=== PATIENT | female | born 1990 | race Caucasian/White ===

== ENCOUNTER → 2017-06-07 | Outpatient (CLI) | payer BC ==
[2017-06-07 09:31] LABS: CH 26.5; CHCM 31.9; HCT 37.4 % (34.0-46.0); HDW 2.35; HGB 12.3 gm/dL (11.4-16.0); MCH 27.4 pg (25.0-35.0); MCHC 32.8 g/dL (31.0-37.0); MCV 83.6 fL (80.0-100.0); Mean Platelet Volume 7.3; RBC 4.47 m/uL (3.80-5.40); RDW 14.3 % (11.5-15.5); WBC 8.1 k/uL (3.8-10.6)
[2017-06-07 09:33] LABS: Glucose 76 mg/dL (74-99); Non-African American GFR(MDRD) >60 (>60 ml/min/1.73 sqM)
[2017-06-07 15:46] LABS: Treponemal Ab Non-Reactive (Non-Reactive)
[2017-06-09 06:54] LABS: Toxoplasma Antibody (IgG) <3.0 IU/mL (<7.2)
== END | disposition home or self-care (01) ==
LOC: LABWHC1 08:46
PROVIDERS: ATTEND Obstetrics & Gynecology
DX: Z34.81 Encounter for supervision of other normal pregnancy, first trimester (principal)
CPT/HCPCS: 36415; 82565; 82947; 85027; 86762; 86777; 86778; 86780; 86850; 86900; 86901; 87340; 87390

== ENCOUNTER 2017-11-30 09:32 | Outpatient (CLI) | payer BC ==
[2017-11-30 09:46] VITALS: RESP 16; TEMP 98.3
[2017-11-30 10:13] LABS: Appearance,Urine Clear (Clear); Bacteria,Urine Moderate /hpf; Bilirubin,Urine Negative (Negative); Blood,Urine Negative (Negative); Color,Urine Light Yellow; Glucose,Urine (UA) Negative (Negative); Ketones,Urine Negative (Negative); Leukocyte Esterase,Urine Moderate (Negative); Nitrite,Urine Negative (Negative); PH, Urine 6.5 (5.0-8.0); Protein,Urine Negative (Negative); Specific Gravity,Urine 1.002 (1.001-1.035); Squamous Epithelial Cell,Urine 1 /hpf (0-4); Urobilinogen,Urine <2.0 mg/dL (<2.0); WBC,Urine 3 /hpf (0-5)
[2017-11-30 10:55] LABS: Basophils % (A) 0 %; Eosinophils # (A) 0.1 k/uL (0-0.7); Eosinophils % (A) 1 %; HCT 35.2 % (34.0-46.0); HGB 11.6 gm/dL (11.4-16.0); Lymphocytes # (A) 1.2 k/uL (1.0-4.8); Lymphocytes % (A) 12 %; MCH 27.5 pg (25.0-35.0); MCV 83.4 fL (80.0-100.0); Mean Platelet Volume 7.1; Monocytes # (A) 0.8 k/uL (0-1.0); Monocytes % (A) 8 %; Neutrophils # (A) 7.9 k/uL (1.3-7.7); Neutrophils % (A) 78 %; Platelet Count 210 k/uL (150-450); RBC 4.22 m/uL (3.80-5.40); WBC 10.1 k/uL (3.8-10.6)
[2017-11-30 11:09] LABS: ALT 31 U/L (9-52); AST 19 U/L (14-36); Blood Urea Nitrogen 7 mg/dL (7-17); LDH 442 U/L (313-618); Uric Acid 3.1 mg/dL (3.7-7.4)
[2017-11-30 11:32] VITALS: BP 121/74; PULSE 96
--- NOTE | 2017-11-30 12:27 | P.MSEPDOC ---
Presenting Problems - Arrival Data Date of Arrival on Unit: 11/30/17 Time of Arrival on Unit: 09:30 Mode of Transport: Ambulatory - Complaint OB-Reason for Admission/Chief Complaint: Elevated Blood Pressure Comment: sent from office Medical History - Information : 1 Para: 0 Term: 0 : 0 Abortions: Spontaneous or Elective: 0 Number of Living Children: 0 - Gestational Age Gestational Age by ADDIS (wks/days): 33 Weeks and 6 Days Review of Systems - Review of Systems Constitutional: No problems Breast: No problems ENT: No problems Cardiovascular: No problems Respiratory: No problems Gastrointestinal: No problems Genitourinary: No problems Musculoskeletal: No problems Neurological: No problems Skin: No problems Vital Signs - Temperature Temperature: 98.3 F Temperature Source: Temporal Artery Scan - Pulse Right Pulse Rate: 96 Pulse Assessment Method: Pulse Oximetry - Respirations Respiratory Rate: 16 - Blood Pressure Right Arm Blood Pressure: 121/74 Blood Pressure Mean: 89 Blood Pressure Source: Automatic Cuff Medical Screen Scoring (Pre) - Cervical Exam Dilation: Exam Deferred Effacement: Exam Deferred - Uterine Contractions Frequency: > 5 minutes apart = 1 Duration: > 40 seconds = 2 Intensity: N/A - Maternal Vital Signs Maternal Temperature: N/A Maternal Blood Pressure: N/A Signs of Preeclampsia: N/A Maternal Respirations: N/A - Maternal Trauma Maternal Trauma: N/A - Assessment Baseline FHR: 135 Heart Rate - NICHD Category: Category I (Normal) = 0 NST: Reactive Position: N/A - Total Score Total Score (Pre): 3 - Level of Risk Level of Risk: Low (0-5) Physician Notification (Pre) - Physician Notified Physician Notified Date: 11/30/17 Physician Notified Time: 11:25 Physician/Practitioner Notifed:: Dr Saeed - Notification Comment Comment: reported on labs, vitals, fhts, cntrx pattern. orders to d/c home at this time, return with worsening sx. keep scheduled appt in office on wednesday Disposition - Disposition OB Disposition: Discharge to home Discharge Date: 11/30/17 Discharge Time: 11:31 I agree with the RN Medical Screening Exam: Yes Risk & Benefit of care provided described in d/c instruction: Yes Diagnosis: GESTATIONAL HTN W/O SIGNIFICANT PROTEINURIA, THIRD TRIMESTER
== END 2017-11-30 11:30 | disposition home or self-care (01) ==
LOC: FBPOP 09:32
PROVIDERS: ATTEND Obstetrics & Gynecology
DX: O13.3 Gestational [pregnancy-induced] hypertension without significant proteinuria, third trimester (principal); Z3A.33 33 weeks gestation of pregnancy
CPT/HCPCS: 59025; 81001; 82565; 83615; 84156; 84450; 84460; 84520; 84550; 85025

== ENCOUNTER 2018-01-03 11:47 | Inpatient (IN) | payer BC ==
[2018-01-03] MEDS ORDERED: LIDOCAINE 1% (PF) 10 MG/ML (30 ML SDV) SQ PRN (12:19)
[2018-01-03] MEDS ORDERED: TERBUTALINE 1 MG/ML VIAL SQ PRN (12:19)
[2018-01-03] MEDS ORDERED: OXYTOCIN 10 UNIT/ML 1 ML VIAL IM PRN (12:19)
[2018-01-03] MEDS ORDERED: CARBOPROST TROMETHAMINE 250 MCG/ML 1 ML AMP IM PRN (12:19)
[2018-01-03] MEDS ORDERED: METHYLERGONOVINE 0.2 MG/ML 1 ML AMP IM PRN (12:19)
[2018-01-03] MEDS ORDERED: OXYTOCIN 20 UNITS/1000 ML NS 1,000 ML IV SCH (12:30)
[2018-01-03] MEDS: LACTATED RINGERS 1,000 ML IV SCH (12:40)
[2018-01-03 12:56] VITALS: BMI 30.9
[2018-01-03 12:56] LABS: Basophils % (A) 0 %; Eosinophils # (A) 0.1 k/uL (0-0.7); Eosinophils % (A) 1 %; HCT 35.5 % (34.0-46.0); HGB 11.7 gm/dL (11.4-16.0); Lymphocytes # (A) 1.2 k/uL (1.0-4.8); Lymphocytes % (A) 13 %; MCV 84.9 fL (80.0-100.0); Mean Platelet Volume 7.4; Monocytes # (A) 0.7 k/uL (0-1.0); Monocytes % (A) 8 %; Neutrophils # (A) 7.2 k/uL (1.3-7.7); Neutrophils % (A) 77 %; Platelet Count 203 k/uL (150-450); RBC 4.18 m/uL (3.80-5.40); WBC 9.4 k/uL (3.8-10.6)
[2018-01-03 13:01] LABS: Albumin 3.7 g/dL (3.5-5.0); Bilirubin, Delta 0.2 mg/dL (0.0-0.2); Bilirubin,Unconjugated 0.4 mg/dL (0.0-1.1); Partial Thromboplastin Time 22.6 sec (22.0-30.0); Prothrombin Time 9.5 sec (9.0-12.0); Total Bilirubin 0.6 mg/dL (0.2-1.3); Total Protein 6.4 g/dL (6.3-8.2)
[2018-01-03 14:01] LABS: Appearance,Urine Cloudy (Clear); Bacteria,Urine Few /hpf; Bilirubin,Urine Negative (Negative); Blood,Urine Negative (Negative); Color,Urine Light Yellow; Glucose,Urine (UA) Negative (Negative); Ketones,Urine Negative (Negative); Leukocyte Esterase,Urine Large (Negative); Mucus,Urine Rare /hpf; Nitrite,Urine Negative (Negative); Protein,Urine Negative (Negative); Specific Gravity,Urine 1.004 (1.001-1.035); Squamous Epithelial Cell,Urine 4 /hpf (0-4); Urobilinogen,Urine <2.0 mg/dL (<2.0); WBC,Urine 15 /hpf (0-5)
--- NOTE | 2018-01-03 18:22 | P.HPOB ---
History of Present Illness H&P Date: 01/03/18 Chief Complaint: Gestational hypertension This patient is a pleasant 27-year-old 2 para 0 female estimated date of confinement 01/12/2018 estimated gestational age 38-5/7 weeks' who presents to labor and delivery from my office for delivery secondary to gestational hypertension. History is such that patient developed some elevated diastolic blood pressures at 34 weeks. At that time she was watched closely with antepartum testing and twice weekly blood pressures. She been doing well until presentation today in the office and was noted to have a diastolic blood pressure 90. Repeat blood pressure here at the hospital similarly shows elevated diastolic blood pressure. Patient general is feeling well. Preeclampsia labs are negative. is otherwise been uncomplicated. I recommended to proceed with delivery at this time per current recommendations for gestational hypertension. Review of Systems Gastrointestinal: Reports heartburn Genitourinary: Reports Menstruation: Reports amenorrhea Past Medical History Past Medical History: No Reported History History of Any Multi-Drug Resistant Organisms: None Reported Additional Past Surgical History / Comment(s): deviated nasal septum surgery 2007 Past Anesthesia/Blood Transfusion Reactions: No Reported Reaction Past Psychological History: No Psychological Hx Reported Smoking Status: Never smoker Past Alcohol Use History: None Reported Past Drug Use History: None Reported - Past Family History Father Family Medical History: Hyperlipidemia, Hypertension Medications and Allergies Home Medications Medication Instructions Recorded Confirmed Type Ferrous Sulfate [Slow Fe] 142 mg PO DAILY 11/30/17 01/03/18 History Pnv,Calcium 72/Iron/Folic Acid 1 tab PO DAILY 11/30/17 01/03/18 History [ Plus Tablet] Allergies Allergy/AdvReac Type Severity Reaction Status Date / Time No Known Allergies Allergy Verified 11/30/17 09:35 Exam - Vital Signs Vital signs: Vital Signs Temp Pulse Resp BP Pulse Ox 01/03/18 11:55 97.7 F 98 17 132/92 98 Intake and Output 01/03/18 01/03/18 01/03/18 06:59 14:59 22:59 Other: # Voids 1 Weight 92.079 kg - OBG Physical Exam Abdomen: bowel sounds normal, no diffuse tenderness, no bruit present, no guarding noted, no hepatomegaly, no splenomegaly, no mass Vulva: both: normal Cervix: no lesion (Cervix is 2 cm dilated and 60% effaced.), no discharge Uterus: enlarged (Fundal height is 39 cm.) Results blood work shows she is a nonreactive, hepatitis B negative, HIV nonreactive. patient received RhoGAM on October 12. Group B strep was negative. Ultrasounds have been normal. Estimated weight is approximately 7-3/4 pounds. Result Diagrams: 01/03/18 12:20 Abnormal Lab Results - Last 24 Hours (Table) 01/03/18 01/03/18 Range/Units 12:00 12:20 Uric Acid 3.0 L (3.7-7.4) mg/dL Lactate Dehydrogenase 675 H (313-618) U/L Urine Appearance Cloudy H (Clear) Ur Leukocyte Esterase Large H (Negative) Urine WBC 15 H (0-5) /hpf Urine Bacteria Few H (None) /hpf Urine Mucus Rare H (None) /hpf Assessment and Plan Assessment: This is a pleasant 27-year-old 2 para 0 female 38-5/7 weeks' gestation with mild gestational hypertension. Per current recommendations I recommended she proceed with induction at this time and she agrees. Plan is induction of labor with Pitocin and anticipate vaginal delivery. At this time there is no evidence of preeclampsia. (1) Third trimester Current Visit: Yes Status: Acute Code(s): Z34.93 - ENCNTR FOR SUPRVSN OF NORMAL PREG, UNSP, THIRD TRIMESTER SNOMED Code(s): 28498117 (2) Gestational hypertension Current Visit: Yes Status: Acute Code(s): O13.9 - GESTATIONAL HTN W/O SIGNIFICANT PROTEINURIA, UNSP TRIMESTER SNOMED Code(s): 13478650
[2018-01-03 19:23] LABS: Hemoglobin A1C 5.4 % (4.0-6.0)
[2018-01-03] MEDS ORDERED: BUPIVACAINE (PF) 0.25% 30 ML VIAL ONE (19:55)
[2018-01-03] MEDS ORDERED: fentaNYL (PF) 50 MCG/ML 5 ML AMP ONE (19:55)
[2018-01-03] MEDS ORDERED: SODIUM CHLORIDE 0.9% 100 ML BAG ONE (19:55)
[2018-01-04] MEDS ORDERED: AMPICILLIN 2,000 MG in SODIUM CHLORIDE 0.9% 100 ML IVPB STA (01:44)
[2018-01-04] MEDS: LACTATED RINGERS 1,000 ML IV SCH (02:45)
[2018-01-04] MEDS ORDERED: diphenhydrAMINE 50 MG/ML 1 ML VIAL IVP PRN (04:17)
[2018-01-04] MEDS ORDERED: SIMETHICONE 80 MG CHEWABLE PO PRN (04:17)
[2018-01-04] MEDS ORDERED: LANOLIN CREAM 5 GM TUBE TOPICAL PRN (04:17)
[2018-01-04] MEDS ORDERED: WITCH HAZEL 1 EACH MED..PAD TOPICAL PRN (04:17)
[2018-01-04] MEDS ORDERED: diphenhydrAMINE 25 MG CAP PO PRN (04:17)
[2018-01-04] MEDS ORDERED: BISACODYL 10 MG SUPP RECTAL PRN (04:17)
[2018-01-04] MEDS ORDERED: ZOLPIDEM 5 MG TAB PO PRN (04:17)
[2018-01-04] MEDS ORDERED: Rhogam IMMUNE GLOBULIN 1,500 UNIT/1 ML IM ONE (04:17)
[2018-01-04] MEDS ORDERED: BENZOCAINE/MENTHOL SPRAY 1 GM/SPRAY AEROSOL TOPICAL PRN (04:17)
[2018-01-04] MEDS ORDERED: HYDROCORTISONE 2.5% RECTAL CREAM 30 GM TUBE RECTAL PRN (04:17)
--- NOTE | 2018-01-04 04:26 | P.PROBDLV ---
Vaginal Delivery Note - . Vaginal Delivery Note: Normal vaginal delivery viable female Apgars 8 and 9 delivery time is 0351 hours. Please see dictated H&P for intimate details of this patient's admission. Brief summary this is a pleasant 27-year-old 2 para 0 female 38-5/7 weeks gestation who is admitted from my office with gestational hypertension. Patient has preeclampsia labs which were normal. Induction is started with Pitocin per protocol and she has artificial rupture membranes at 2 cm dilated. Patient's labor does progress at approximately 3-4 cm dilation gets an epidural. Immediately after the epidural, heart tones are consistent with PACs. They are reassuring careful observation. Patient's labor does continue to progress. Patient pushes the head to the perineum. At this point she has increased PACs and at this time is felt to best to facilitate delivery with a episiotomy. A midline episiotomy is made after local anesthetic. Then have controlled delivery of 's head over the perineum. Mouth and nares are bulb suctioned. There is no evidence of a nuchal cord but there is a knuckle of cord next to the shoulder. With gentle downward traction we deliver the anterior shoulder and posterior shoulder and rest this infant's body. This is a vigorous viable female Apgars are 8 and 9 delivery time was 0351 hours. Infant has spontaneous respirations and cry and grossly appears normal. After delivery of the infant the placenta spontaneously delivered intact. Inspection of perineum shows second-degree lacerations repaired with 3-0 Vicryl in the usual fashion good reapproximation is noted. All counts are correct 3. There are no complications. Estimated blood loss is 150 mL.
[2018-01-04] MEDS ORDERED: OXYTOCIN 20 UNITS/1000 ML NS 1,000 ML IV SCH (04:30)
[2018-01-04 04:59] VITALS: RESP 16
[2018-01-04] MEDS ORDERED: AMPICILLIN 1,000 MG in SODIUM CHLORIDE 0.9% 50 ML IVPB SCH (06:00)
[2018-01-04] MEDS: SENNOSIDES-DOCUSATE SODIUM 1 EACH TAB PO SCH ×2 (09:29→20:12)
[2018-01-04] MEDS: IBUPROFEN 600 MG TAB PO PRN ×2 (10:48→20:10)
[2018-01-04] MEDS: ACETAMINOPHEN TAB 325 MG TAB PO PRN (12:57)
[2018-01-05] MEDS: ACETAMINOPHEN TAB 325 MG TAB PO PRN (00:54)
--- NOTE | 2018-01-05 06:07 | P.PNOBGVD ---
Subjective - Subjective Patient reports: Reports appetite normal, Reports voiding normally, Reports pain well controlled, Reports ambulating normally : doing well Objective - Latest Vital Signs Latest vital signs: Vital Signs Temp Pulse Resp BP Pulse Ox 01/05/18 00:00 98.4 F 91 16 127/84 01/04/18 16:00 98.1 F 92 16 135/95 99 01/04/18 08:00 97.7 F 83 16 124/88 99 - Exam Lungs: bilateral: normal Chest: Normal S1, Normal S2 Extremities: Present: normal Abdomen: Present: normal appearance, soft Uterus: Present: normal, firm Assessment and Plan Assessment: Post day #1. Patient's resting without complaints. Vital signs are stable she is afebrile. Patient wishes to go home. Uterus is firm nontender and she is having normal lochia. My impression is a normal post course. Plan is to continue routine care discharge home later today. (1) Third trimester Current Visit: Yes Status: Acute Code(s): Z34.93 - ENCNTR FOR SUPRVSN OF NORMAL PREG, UNSP, THIRD TRIMESTER SNOMED Code(s): 32459213 (2) Gestational hypertension Current Visit: Yes Status: Acute Code(s): O13.9 - GESTATIONAL HTN W/O SIGNIFICANT PROTEINURIA, UNSP TRIMESTER SNOMED Code(s): 93875162
--- NOTE | 2018-01-05 06:16 | P.DS ---
Providers Date of admission: 01/03/18 11:47 Expected date of discharge: 01/05/18 Attending physician: Dany Saeed Primary care physician: Stated None - Discharge Diagnosis(es) (1) Third trimester Current Visit: Yes Status: Acute (2) Gestational hypertension Current Visit: Yes Status: Acute Hospital Course: Please see dictated H&P for intimate details of this patient's admission. Brief summary this pleasant 27-year-old 2 para 0 female 38-6/7 weeks gestation who is admitted to labor and delivery with gestational hypertension. Patient went on have a vaginal delivery viable female . Please see dictated delivery note. day 1 patient's felt be stable for discharge home follow up with me in 6 weeks. Procedures: Induction of labor and normal vaginal delivery. Patient Condition at Discharge: Good Plan - Discharge Summary New Discharge Prescriptions: New Ibuprofen [Motrin] 600 mg PO Q6HR PRN #40 tab PRN Reason: Mild Pain Or Fever >= 100.5 No Action Pnv,Calcium 72/Iron/Folic Acid [ Plus Tablet] 1 tab PO DAILY Ferrous Sulfate [Slow Fe] 142 mg PO DAILY Discharge Medication List Ferrous Sulfate [Slow Fe] 142 mg PO DAILY 11/30/17 [History] Pnv,Calcium 72/Iron/Folic Acid [ Plus Tablet] 1 tab PO DAILY 11/30/17 [ History] Ibuprofen [Motrin] 600 mg PO Q6HR PRN #40 tab 01/05/18 [Rx] Follow up Appointment(s)/Referral(s): Dany Saeed MD [STAFF PHYSICIAN] - 6 Weeks Patient Instructions/Handouts: Vaginal Delivery (DC) Activity/Diet/Wound Care/Special Instructions: No intercourse or anything per vagina for 6 weeks. Please call if any fever, chills, excessive vaginal bleeding, and/or abdominal pain. Discharge Disposition: HOME SELF-CARE
[2018-01-05] MEDS: IBUPROFEN 600 MG TAB PO PRN (08:13)
[2018-01-05 09:13] VITALS: BP 116/77; PULSE 96; TEMP 98.1
[2018-01-05] MEDS: SENNOSIDES-DOCUSATE SODIUM 1 EACH TAB PO SCH (11:39)
== END 2018-01-05 11:00 | disposition home or self-care (01) | DRG 775 ==
LOC: 4FBP 11:47
PROVIDERS: ADMIT Obstetrics & Gynecology; ATTEND Obstetrics & Gynecology
PROC: 0W8NXZZ Division of Female Perineum, External Approach (ICD-10-PCS; principal; 2018-01-03)
PROC: 00HU33Z Insertion of Infusion Device into Spinal Canal, Percutaneous Approach (ICD-10-PCS; principal; 2018-01-03)
PROC: 3E033VJ Introduction of Other Hormone into Peripheral Vein, Percutaneous Approach (ICD-10-PCS; principal; 2018-01-03)
PROC: 3E0R3NZ Introduction of Analgesics, Hypnotics, Sedatives into Spinal Canal, Percutaneous Approach (ICD-10-PCS; principal; 2018-01-03)
PROC: 10907ZC Drainage of Amniotic Fluid, Therapeutic from Products of Conception, Via Natural or Artificial Opening (ICD-10-PCS; principal; 2018-01-03)
PROC: 0KQM0ZZ Repair Perineum Muscle, Open Approach (ICD-10-PCS; principal; 2018-01-03)
PROC: 10E0XZZ Delivery of Products of Conception, External Approach (ICD-10-PCS; principal; 2018-01-03)
DX: O13.4 Gestational [pregnancy-induced] hypertension without significant proteinuria, complicating childbirth (principal); Z37.0 Single live birth; Z3A.38 38 weeks gestation of pregnancy; O70.1 Second degree perineal laceration during delivery; O76 Abnormality in fetal heart rate and rhythm complicating labor and delivery
CPT/HCPCS: 80076; 81001; 83036; 83615; 84550; 85025; 85610; 85730; 88307

== ENCOUNTER 2019-12-19 22:24 | Outpatient (CLI) | payer SELFPAY ==
[2019-12-20 00:47] VITALS: BP 118/76; PULSE 96; RESP 16; TEMP 98.4
--- NOTE | 2019-12-21 09:49 | P.MSEPDOC ---
Presenting Problems - Arrival Data Date of Arrival on Unit: 12/19/19 Time of Arrival on Unit: 22:24 Mode of Transport: Wheelchair - Complaint OB-Reason for Admission/Chief Complaint: Vaginal Bleeding Comment: pink blood dripping into toilet about 2100, none since Medical History - Information : 2 Para: 1 Term: 1 : 0 Abortions: Spontaneous or Elective: 0 Number of Living Children: 1 - Gestational Age Gestational Age by ADDIS (wks/days): 27 Weeks and 3 Days Review of Systems - Review of Systems Constitutional: No problems Breast: No problems ENT: No problems Cardiovascular: No problems Respiratory: No problems Gastrointestinal: No problems Genitourinary: No problems Musculoskeletal: No problems Neurological: No problems Skin: No problems Vital Signs - Temperature Temperature: 98.4 F Temperature Source: Temporal Artery Scan - Pulse Right Brachial Pulse Rate: 96 Pulse Assessment Method: Automatic Cuff - Respirations Respiratory Rate: 16 Oxygen Delivery Method: Room Air - Blood Pressure Right Arm Blood Pressure: 118/76 Blood Pressure Mean: 90 Blood Pressure Source: Automatic Cuff Medical Screen Scoring (Pre) - Cervical Exam Dilation: 0 cm = 0 Membranes: Intact - Uterine Contractions Frequency: N/A Duration: N/A Intensity: N/A - Maternal Vital Signs Maternal Temperature: N/A Maternal Blood Pressure: N/A Signs of Preeclampsia: N/A - Assessment - Baby A Baseline FHR: 130 Heart Rate - NICHD Category: Category I (Normal) = 0 Position: N/A Station: N/A - Total Score - Baby A Total Score - Baby A: 0 - Total Score - Baby B Total Score - Baby B: 0 - Total Score - Baby C Total Score - Baby C: 0 - Level of Risk - Baby A Level of Risk - Baby A: Low (0-5) - Level of Risk - Baby B Level of Risk - Baby B: Low (0-5) - Level of Risk - Baby C Level of Risk - Baby C: Low (0-5) Physician Notification (Pre) - Physician Notified Physician Notified Date: 12/20/19 Physician Notified Time: 23:07 New Order Received: Yes (d/c with instructions) - Notification Comment Comment: closed cervix, small bloody mucus on glove, intercourse night before, no contractions, d/c with instructions to follow up at next sched appt. Disposition - Disposition OB Disposition: Triage, Discharge to home, Written follow up instructions reviewed Discharge Date: 12/20/19 Discharge Time: 23:11 I agree with the RN Medical Screening Exam: Yes Risk & Benefit of care provided described in d/c instruction: Yes Diagnosis: ANTEPARTUM HEMORRHAGE, UNSPECIFIED, THIRD TRIMESTER
== END 2019-12-19 23:11 | disposition home or self-care (01) ==
LOC: FBPOP 22:24
PROVIDERS: ATTEND Obstetrics & Gynecology
DX: O46.93 Antepartum hemorrhage, unspecified, third trimester (principal); Z3A.27 27 weeks gestation of pregnancy
CPT/HCPCS: 99213

== ENCOUNTER 2020-03-13 05:48 | Inpatient (IN) | payer BC ==
--- NOTE | 2020-03-12 13:46 | P.HPOB ---
History of Present Illness H&P Date: 03/12/20 Chief Complaint: Elective induction of labor This patient is a pleasant 30 yr female EDC 03/17/2020 estimated gestational age 39 2/7 weeks gestation who presents for requested induction of labor. ultrasounds have shown some mild bilateral renal pelves dilation (last ultrasound showed minimal to no dilation; 7,8 mm). has been otherwise uncomplicated. Requesting induction at this time. Review of Systems Genitourinary: Reports Menstruation: Reports amenorrhea Past Medical History Past Medical History: No Reported History History of Any Multi-Drug Resistant Organisms: None Reported Additional Past Surgical History / Comment(s): deviated nasal septum surgery 2007 Past Anesthesia/Blood Transfusion Reactions: No Reported Reaction Past Psychological History: No Psychological Hx Reported Smoking Status: Never smoker Past Alcohol Use History: None Reported Past Drug Use History: None Reported - Past Family History Father Family Medical History: Hyperlipidemia, Hypertension Medications and Allergies Home Medications Medication Instructions Recorded Confirmed Type Ferrous Sulfate [Slow Fe] 142 mg PO DAILY 11/30/17 12/19/19 History Pnv,Calcium 72/Iron/Folic Acid 1 tab PO DAILY 11/30/17 12/19/19 History [ Plus Tablet] Loratadine [Claritin] 10 mg PO DAILY 12/19/19 12/19/19 History Allergies Allergy/AdvReac Type Severity Reaction Status Date / Time No Known Allergies Allergy Verified 11/30/17 09:35 Exam - OBG Physical Exam Abdomen: bowel sounds normal, no diffuse tenderness, no bruit present, no guarding noted, no hepatomegaly, no splenomegaly, no mass Vulva: both: normal Vagina: normal moisture, no discharge Cervix: no lesion, no discharge Uterus: enlarged, normal contour (Fundal height is 38cm) Results bloodwork: A negative (Rhogam given 12/21/2019), Rubella Immune, RPR- HepB negative, Glucola 78, GBS negative 02/13, Ultrasound EFW 6#0oz (72%) Assessment and Plan Assessment: This is a pleasant 30 yr female 39 2/7 weeks gestation who is presenting for elective induction of labor. Plan is induction of labor and anticipate . (1) 39 weeks gestation of Status: Acute Code(s): Z3A.39 - 39 WEEKS GESTATION OF SNOMED Code(s): 81107717 (2) Elective induction of labor planned Status: Acute Code(s): JCT8633 - SNOMED Code(s): 791679665
[2020-03-13] MEDS ORDERED: OXYTOCIN 10 UNIT/ML 1 ML VIAL IM PRN (05:55)
[2020-03-13] MEDS ORDERED: LIDOCAINE 0.5% (PF) 5 MG/ML (50 ML SDV) SQ PRN (05:55)
[2020-03-13] MEDS ORDERED: TERBUTALINE 1 MG/ML VIAL SQ PRN (05:55)
[2020-03-13] MEDS ORDERED: CARBOPROST TROMETHAMINE 250 MCG/ML 1 ML AMP IM PRN (05:55)
[2020-03-13] MEDS ORDERED: METHYLERGONOVINE 0.2 MG/ML 1 ML AMP IM PRN (05:55)
[2020-03-13] MEDS ORDERED: OXYTOCIN 30 UNITS/500 ML NS 30 UNIT in SALINE 1 500ML.BAG IV SCH (05:55)
[2020-03-13] MEDS: LACTATED RINGERS 1,000 ML IV SCH ×3 (06:12→10:47)
[2020-03-13 07:35] LABS: Basophils % (A) 0 %; Eosinophils # (A) 0.1 k/uL (0-0.7); Eosinophils % (A) 2 %; HCT 34.7 % (34.0-46.0); Lymphocytes # (A) 1.1 k/uL (1.0-4.8); Lymphocytes % (A) 13 %; MCH 26.9 pg (25.0-35.0); MCHC 31.6 g/dL (31.0-37.0); Mean Platelet Volume 7.5; Monocytes # (A) 0.6 k/uL (0-1.0); Monocytes % (A) 7 %; Neutrophils # (A) 6.3 k/uL (1.3-7.7); Neutrophils % (A) 76 %; Platelet Count 171 k/uL (150-450); RBC 4.08 m/uL (3.80-5.40); RDW 14.3 % (11.5-15.5); WBC 8.3 k/uL (3.8-10.6)
[2020-03-13] MEDS ORDERED: ROPIVACAINE 5MG/ML 20ML VIAL ONE (10:01)
[2020-03-13] MEDS ORDERED: SODIUM CHLORIDE 0.9% 100 ML BAG ONE (10:01)
[2020-03-13] MEDS ORDERED: fentaNYL (PF) 50 MCG/ML 5 ML AMP ONE (10:01)
[2020-03-13] MEDS ORDERED: diphenhydrAMINE 50 MG/ML 1 ML VIAL IVP PRN (14:29)
[2020-03-13] MEDS ORDERED: OXYTOCIN 20 UNITS/1000 ML NS 1,000 ML IV SCH (14:29)
[2020-03-13] MEDS ORDERED: HYDROCORTISONE 2.5% RECTAL CREAM 30 GM TUBE RECTAL PRN (14:29)
[2020-03-13] MEDS ORDERED: BENZOCAINE/MENTHOL SPRAY 1 GM/SPRAY AEROSOL TOPICAL PRN (14:29)
[2020-03-13] MEDS ORDERED: LANOLIN CREAM 5 GM TUBE TOPICAL PRN (14:29)
[2020-03-13] MEDS ORDERED: SENNOSIDES-DOCUSATE SODIUM 1 EACH TAB PO SCH (14:29)
[2020-03-13] MEDS ORDERED: diphenhydrAMINE 25 MG CAP PO PRN (14:29)
[2020-03-13] MEDS ORDERED: ZOLPIDEM 5 MG TAB PO PRN (14:29)
[2020-03-13] MEDS ORDERED: Rhogam IMMUNE GLOBULIN 1,500 UNIT/1 ML IM ONE (14:29)
[2020-03-13] MEDS ORDERED: bisacodyL 10 MG SUPP RECTAL PRN (14:29)
[2020-03-13] MEDS ORDERED: SIMETHICONE 80 MG CHEWABLE PO PRN (14:29)
[2020-03-13] MEDS: SENNOSIDES-DOCUSATE SODIUM 1 EACH TAB PO SCH ×2 (16:25→20:12)
--- NOTE | 2020-03-13 16:54 | P.PROBDLV ---
Vaginal Delivery Note - . Vaginal Delivery Note: Normal vaginal delivery viable male infant Apgars 9 and 10 delivery time 1406 hrs. Please see dictated H&P intimate details this patient's admission. Brief summary this pleasant 30-year-old 3 para 1 female estimated gestational age 39-3/7 weeks gestation is admitted to labor and delivery for requested induction of labor. Patient is admitted she has artificial rupture membranes at 2 cm dilated for clear fluid. Labor is induced with Pitocin per protocol. Patient does get an epidural for pain control. Labor progresses quite quickly and she gets to complete. Patient pushes the head to the perineum. Posterior perineum was supported and we have controlled delivery of infant's head over the intact perineum. Mouth and nares are bulb suctioned. There is a nuchal cord 1 which is easily reduced. Then have delivery of the anterior posterior shoulder and rest this 's body. This is a vigorous viable male infant Apgars are 9 and 10 delivery time is 1406 hrs. After delivery of the infant the umbilical cord was immediately clamped and cut because patient does have a history of jaundice with her first child. The umbilical cords does appear to be trivascular. Placenta is then spontaneously delivered intact. Estimated blood loss is 100 mL. Inspection of the perineum shows a first-degree perineal laceration 3-0 Vicryl in the usual fashion excellent reapproximation is noted there is also a superficial right periurethral lacerations not require repair. All counts are correct 3. There are no complications. and mother are stable delivery room.
[2020-03-13] MEDS: IBUPROFEN 600 MG TAB PO PRN (20:13)
[2020-03-13 23:28] VITALS: PULSE 94
[2020-03-14] MEDS: IBUPROFEN 600 MG TAB PO PRN ×2 (01:55→10:14)
[2020-03-14] MEDS: ACETAMINOPHEN TAB 325 MG TAB PO PRN ×2 (05:26→13:47)
--- NOTE | 2020-03-14 06:32 | P.PNOBGVD ---
Subjective - Subjective Patient reports: Reports appetite normal, Reports voiding normally, Reports pain well controlled, Reports ambulating normally : doing well Objective - Latest Vital Signs Latest vital signs: Vital Signs Temp Pulse Resp BP Pulse Ox 03/13/20 23:29 94 16 03/13/20 23:27 97.8 F 94 16 123/81 03/13/20 20:00 97.8 F 72 16 118/72 98 03/13/20 16:22 97.7 F 68 16 123/74 98 03/13/20 15:52 90 16 123/79 03/13/20 15:22 98.6 F 70 16 125/73 03/13/20 15:04 74 6 L 129/76 03/13/20 14:51 89 16 112/71 03/13/20 14:36 78 16 117/77 03/13/20 14:22 98.3 F 85 16 119/78 Intake and Output 03/13/20 03/13/20 03/14/20 14:59 22:59 06:59 Intake Total 480 Output Total 100 Balance -100 480 Intake: Oral 480 Output: Estimated Blood Loss 100 Other: # Voids 1 2 - Exam Lungs: bilateral: normal Chest: Normal S1, Normal S2 Extremities: Present: normal Abdomen: Present: normal appearance, soft Uterus: Present: normal, firm - Labs Labs: Abnormal Lab Results - Last 24 Hours (Table) 03/13/20 Range/Units 07:14 Hgb 11.0 L (11.4-16.0) gm/dL Assessment and Plan Assessment: day #1. Patient is resting without complaints and wishes to go home. Vital signs are stable she is afebrile. Uterus is firm nontender and she is having normal lochia. My impression is this is a normal course. Plan is to continue routine care discharge home later today. (1) 39 weeks gestation of Current Visit: No Status: Acute Code(s): Z3A.39 - 39 WEEKS GESTATION OF SNOMED Code(s): 40586661 (2) Elective induction of labor planned Current Visit: No Status: Acute Code(s): TJR5475 - SNOMED Code(s): 781275901
--- NOTE | 2020-03-14 06:35 | P.DS ---
Providers Date of admission: 03/13/20 05:48 Expected date of discharge: 03/14/20 Attending physician: Dany Saeed Primary care physician: Stated None - Discharge Diagnosis(es) (1) 39 weeks gestation of Current Visit: No Status: Acute (2) Elective induction of labor planned Current Visit: No Status: Acute Hospital Course: Please see dictated H&P for intimate details of this patient's admission. Brief summary is a pleasant 30-year-old 3 para 1 female 39-1/2 weeks gestation admitted to labor and delivery for requested induction of labor. Patient is uncomplicated induction of labor quickly goes on have a vaginal delivery viable male infant. Please see dictated delivery note. day 1 patient's doing well wishes to go home. Patient's felt be stable for discharge home follow up with me in 6 weeks. Procedures: Induction of labor and normal vaginal delivery Patient Condition at Discharge: Good Plan - Discharge Summary New Discharge Prescriptions: New Ibuprofen [Motrin] 600 mg PO Q6HR PRN #40 tab PRN Reason: Mild Pain Or Fever >= 100.5 No Action Pnv,Calcium 72/Iron/Folic Acid [ Plus Tablet] 1 tab PO DAILY Ferrous Sulfate [Slow Fe] 142 mg PO DAILY Loratadine [Claritin] 10 mg PO DAILY Discharge Medication List Ferrous Sulfate [Slow Fe] 142 mg PO DAILY 11/30/17 [History] Pnv,Calcium 72/Iron/Folic Acid [ Plus Tablet] 1 tab PO DAILY 11/30/17 [History] Loratadine [Claritin] 10 mg PO DAILY 12/19/19 [History] Ibuprofen [Motrin] 600 mg PO Q6HR PRN #40 tab 03/14/20 [Rx] Follow up Appointment(s)/Referral(s): Dany Saeed MD [STAFF PHYSICIAN] - 04/23/20 10:45 am Patient Instructions/Handouts: Vaginal Delivery (DC) Discharge Disposition: HOME SELF-CARE
[2020-03-14 07:37] VITALS: BP 119/77; RESP 17; TEMP 98
[2020-03-14] MEDS: SENNOSIDES-DOCUSATE SODIUM 1 EACH TAB PO SCH (07:39)
== END 2020-03-14 15:25 | disposition home or self-care (01) | DRG 807 ==
LOC: 4FBP 05:48
PROVIDERS: ADMIT Obstetrics & Gynecology; ATTEND Obstetrics & Gynecology
DX: O69.81X0 Labor and delivery complicated by cord around neck, without compression, not applicable or unspecified (principal); Z37.0 Single live birth; O26.893 Other specified pregnancy related conditions, third trimester; Z67.11 Type A blood, Rh negative; O70.0 First degree perineal laceration during delivery; O71.82 Other specified trauma to perineum and vulva; Z3A.39 39 weeks gestation of pregnancy; Z79.899 Other long term (current) drug therapy; Z98.890 Other specified postprocedural states; Z87.09 Personal history of other diseases of the respiratory system; Z82.49 Family history of ischemic heart disease and other diseases of the circulatory system; Z83.49 Family history of other endocrine, nutritional and metabolic diseases
CPT/HCPCS: 85025; 86850; 86870; 86880; 86900; 86901

== ENCOUNTER → 2022-04-02 | Outpatient (CLI) | payer OTHER ==
--- NOTE | 2022-04-02 13:56 | MM ---
Reason for Exam: Clinical finding. Baseline mammogram. Patient History: Menarche at age 13. First Full-Term at age 27. Patient has history of breast feeding. Last menstrual period: 03/22/2022 Prior Study Comparison: Patient's first Mammogram. No prior studies available for comparison. Tissue Density: The breast tissue is heterogeneously dense. This may lower the sensitivity of mammography. Findings: Analyzed By CAD. Benign-appearing left axillary lymph nodes. No suspicious mass or distortion in either breast. Overall Assessment: Negative, BI-RAD 1 Management: Screening Mammogram of both breasts at age 40. Manage patient's clinical symptoms on clinical basis. Electronically signed and approved by: Michael Ross M.D.
--- NOTE | 2022-04-03 10:51 | USB ---
Reason for Exam: Clinical finding. Patient History: Menarche at age 13. First Full-Term at age 27. Patient has history of breast feeding. Technique: Method: Whole Breast Handheld. Findings: The whole breast of both breasts, the axilla of both breasts and the retroareolar of both breasts were scanned. Whole Bilateral breast ultrasound including evaluation of the subareolar and axillary regions is performed. No solid or cystic masses are identified. Overall Assessment: Negative, BI-RAD 1 Management: Screening Mammogram of both breasts at age 40. Managed patient's symptoms of diffuse bilateral pain on clinical basis. Return to routine follow-up. Patient told of findings and recommendation at time of dictation. Electronically signed and approved by: Michael Ross M.D.
== END | disposition home or self-care (01) ==
LOC: RADMAMWWP 13:26
PROVIDERS: ATTEND Obstetrics & Gynecology
DX: R92.8 Other abnormal and inconclusive findings on diagnostic imaging of breast (principal)
CPT/HCPCS: 77062; 77066